=== PATIENT | male | born 1955 | race African-American/Black ===

== ENCOUNTER 2018-10-21 14:17 | Emergency (ER) | payer SELFPAY ==
[~2018-10-21] VITALS: Ht 180.3 cm; Wt 127.0 kg
[2018-10-21] MEDS ORDERED: TRANEXAMIC ACID 1,000 MG/10 ML IV ONE ×2 (14:45→15:30)
[2018-10-21] MEDS ORDERED: LIDOCAINE HCL/EPINEPHRINE 1%-EPI 1:100,000 20 ML VIAL INFIL ONE (15:00)
[2018-10-21 15:08] LABS: BASOPHILS % 1.4 % (0.0-2.0); EOSINOPHILS % 4.1 % (0.0-5.0); HEMATOCRIT. 41.5 % (42.0-52.0); HEMOGLOBIN. 14.1 g/dL (14.0-18.0); LYMPHOCYTES % 29.9 % (20.0-50.0); MEAN CORPUSCULAR HEMOGLOBIN 29.1 pg (28.0-32.0); MEAN CORPUSCULAR VOLUME 85.3 fL (80.0-94.0); MEAN PLATELET VOLUME 9.7 fl (7.4-10.4); MONOCYTES % 4.8 % (2.0-8.0); NEUTROPHILS % 59.8 % (40.0-76.0); PLATELET 194 x1000/uL (130-400); RED BLOOD CELL COUNT 4.87 mill/uL (4.7-6.1); RED CELL DISTRIBUTION WIDTH 14.1 % (11.6-14.6)
[2018-10-21 15:13] LABS: CHLORIDE 110 mEq/L (98-107)
[2018-10-21 15:18] LABS: PROTHROMBIN TIME 10.7 sec (9.6-11.0)
[2018-10-21] MEDS ORDERED: HYDROCODONE/ACETAMINOPHEN 5/325MG TABLET PO ONE (17:00)
[2018-10-21] MEDS ORDERED: AMLODIPINE 2.5MG TABLET PO ONE (17:00)
[2018-10-21 17:31] VITALS: BP 198/117
== END 2018-10-21 17:42 | disposition home or self-care (01) ==
LOC: ER 14:17
DX: S01.511A Laceration without foreign body of lip, initial encounter (principal); I16.0 Hypertensive urgency; W01.198A Fall on same level from slipping, tripping and stumbling with subsequent striking against other object, initial encounter; Y93.01 Activity, walking, marching and hiking; Y92.89 Other specified places as the place of occurrence of the external cause
CPT/HCPCS: 12014; 36415; 80053; 85025; 85610; 86850; 86900; 86901; 93005; 96374; 99284; J3490